=== PATIENT | male | born 1980 | race Asian ===

== ENCOUNTER 2023-07-13 08:48 | Emergency (ER) | payer MEDICAID, OTHER ==
[~2023-07-13] VITALS: Ht 170.2 cm; Wt 65.0 kg
[2023-07-13 08:54] VITALS: BP 128/77; PULSE 114; RESP 24; TEMP 97.9; O2SAT 100
== END 2023-07-13 11:50 | disposition home or self-care (01) ==
LOC: ER 08:48 → EDBD 08:48 → ER 11:45
DX: S50.01XA Contusion of right elbow, initial encounter (principal); S27.892A Contusion of other specified intrathoracic organs, initial encounter; V89.2XXA Person injured in unspecified motor-vehicle accident, traffic, initial encounter; Y93.89 Activity, other specified; Y92.89 Other specified places as the place of occurrence of the external cause; Y99.8 Other external cause status
CPT/HCPCS: 71101